=== PATIENT | female | born 1950 | race Caucasian/White ===

== ENCOUNTER 2021-05-13 11:10 | Outpatient (CLI) | payer BC, OTHER | END 2021-05-13 11:11 | disposition home or self-care (01) | LOC: CSHRAD 11:10 | PROVIDERS: ATTEND Internal Medicine | DX: M79.672 Pain in left foot (principal); M79.671 Pain in right foot ==

== ENCOUNTER 2021-08-27 08:45 | Outpatient (CLI) | payer MEDICARE, BC | END 2021-08-27 08:46 | disposition home or self-care (01) | LOC: CSHULT 08:45 | PROVIDERS: ATTEND Internal Medicine | DX: K29.00 Acute gastritis without bleeding (principal); N18.32 Chronic kidney disease, stage 3b | CPT/HCPCS: 76700 ==

== ENCOUNTER 2021-09-03 10:33 | Outpatient (CLI) | payer MEDICARE, BC | END 2021-09-03 10:34 | disposition home or self-care (01) | LOC: CSHLAB 10:33 | PROVIDERS: ATTEND Internal Medicine Gastroenterology | DX: Z20.822 Contact with and (suspected) exposure to COVID-19 (principal); R10.9 Unspecified abdominal pain; R11.0 Nausea | CPT/HCPCS: U0003; U0005 ==

== ENCOUNTER 2021-09-08 09:59 | Day surgery (SDC) | payer MEDICARE, BC ==
[2021-09-04 10:01] VITALS: BMI 29.2
[2021-09-08] MEDS ORDERED: Ondansetron PF 4 MG/2 ML Vial ONE (10:36)
[2021-09-08] MEDS ORDERED: PROPOFOL 0 ML ONE (10:43)
[2021-09-08] MEDS ORDERED: Lidocaine 2% MPF 10 ML AMP (For Epidural Use) ONE (10:45)
[2021-09-08] MEDS ORDERED: Benzocaine 20% Spray 60 ML CAN PO SCH (11:00)
[2021-09-08] MEDS ORDERED: Ketamine 50 MG/ML (10ML VIAL) ONE (11:25)
[2021-09-08] MEDS ORDERED: Midazolam HCl 2 mg/2 ml Vial ONE (11:27)
== END 2021-09-08 12:40 | disposition home or self-care (01) ==
LOC: CSHSDC 09:59
PROVIDERS: ATTEND Internal Medicine Gastroenterology
PROC: 0DB58ZX Excision of Esophagus, Via Natural or Artificial Opening Endoscopic, Diagnostic (ICD-10-PCS; principal; 2021-09-08)
DX: K29.70 Gastritis, unspecified, without bleeding (principal); K25.9 Gastric ulcer, unspecified as acute or chronic, without hemorrhage or perforation; K44.9 Diaphragmatic hernia without obstruction or gangrene; K31.89 Other diseases of stomach and duodenum; Z79.82 Long term (current) use of aspirin; Z79.899 Other long term (current) drug therapy; Z88.0 Allergy status to penicillin; Z88.1 Allergy status to other antibiotic agents; Z88.2 Allergy status to sulfonamides; Z88.5 Allergy status to narcotic agent; Z88.8 Allergy status to other drugs, medicaments and biological substances; Z91.012 Allergy to eggs; Z91.041 Radiographic dye allergy status
CPT/HCPCS: 88305; J2250; J2405; J2704

== ENCOUNTER 2021-12-10 10:16 | Outpatient (CLI) | payer BC, MEDICARE | END 2021-12-10 10:17 | disposition home or self-care (01) | LOC: CSHCT 10:16 | PROVIDERS: ATTEND Physician Assistant Medical | DX: R11.2 Nausea with vomiting, unspecified (principal); K25.9 Gastric ulcer, unspecified as acute or chronic, without hemorrhage or perforation; R63.4 Abnormal weight loss | CPT/HCPCS: 74176 ==

== ENCOUNTER 2022-11-04 13:28 | Outpatient (CLI) | payer OTHER, BC | END 2022-11-04 13:29 | disposition home or self-care (01) | LOC: CSHMAMMO 13:28 | PROVIDERS: ATTEND Internal Medicine | DX: Z12.31 Encounter for screening mammogram for malignant neoplasm of breast (principal); Z13.820 Encounter for screening for osteoporosis; M85.89 Other specified disorders of bone density and structure, multiple sites | CPT/HCPCS: 77063; 77067; 77080 ==